=== PATIENT | male | born 1985 | race African-American/Black ===

== ENCOUNTER 2016-12-26 19:07 | Emergency (ER) | payer MEDICAID, OTHER ==
[~2016-12-26] VITALS: Ht 182.9 cm; Wt 108.0 kg
[~2016-12-26 19:07] MED LIST: ALBUTEROL INH
[2016-12-27 01:55] VITALS: BP 137/84
== END 2016-12-27 01:58 | disposition home or self-care (01) ==
LOC: ER 19:43
DX: S39.011A Strain of muscle, fascia and tendon of abdomen, initial encounter (principal); Q53.10 Unspecified undescended testicle, unilateral; J45.909 Unspecified asthma, uncomplicated; F17.210 Nicotine dependence, cigarettes, uncomplicated; Z88.6 Allergy status to analgesic agent; X50.0XXA Overexertion from strenuous movement or load, initial encounter; Y93.89 Activity, other specified; Y92.018 Other place in single-family (private) house as the place of occurrence of the external cause
CPT/HCPCS: 76857; 99284; Z7610

== ENCOUNTER 2017-07-25 09:50 | Emergency (ER) | payer MEDICAID ==
[~2017-07-25] VITALS: Ht 182.9 cm; Wt 108.6 kg
[2017-07-25 12:09] VITALS: BP 133/73
== END 2017-07-25 12:58 | disposition home or self-care (01) ==
LOC: ER 09:50
DX: R05 Cough (principal); Z88.6 Allergy status to analgesic agent
CPT/HCPCS: 71045; 87804; 99285

== ENCOUNTER 2020-08-08 00:46 | Emergency (ER) | payer MEDICAID, OTHER ==
[~2020-08-08] VITALS: Ht 182.9 cm; Wt 101.0 kg
[2020-08-08] MEDS ORDERED: LORAZEPAM 1MG TABLET PO ONE (01:15)
[2020-08-08 01:38] LABS: BASOPHILS % 1.5 % (0.0-2.0); EOSINOPHILS % 2.5 % (0.0-5.0); HEMATOCRIT. 44.8 % (42.0-52.0); HEMOGLOBIN. 14.8 g/dL (14.0-18.0); LYMPHOCYTES % 34.4 % (20.0-50.0); MEAN CORPUSCULAR HEMOGLOBIN 28.3 pg (28.0-32.0); MEAN CORPUSCULAR VOLUME 85.6 fL (80.0-94.0); MONOCYTES % 11.4 % (2.0-8.0); NEUTROPHILS % 50.2 % (40.0-76.0); PLATELET 235 x1000/uL (130-400); RED BLOOD CELL COUNT 5.24 mill/uL (4.7-6.1); RED CELL DISTRIBUTION WIDTH 14.7 % (11.6-14.6)
[2020-08-08 01:43] LABS: CHLORIDE 105 mEq/L (98-107)
[2020-08-08] MEDS ORDERED: LORA-249 MT (02:13)
[2020-08-08 03:28] VITALS: BP 143/81
== END 2020-08-08 03:29 | disposition home or self-care (01) ==
LOC: ER 00:46
DX: R07.89 Other chest pain (principal); J45.909 Unspecified asthma, uncomplicated; I10 Essential (primary) hypertension; Z88.6 Allergy status to analgesic agent; Z88.5 Allergy status to narcotic agent
CPT/HCPCS: 36415; 71045; 80053; 84484; 85025; 93005; 99285

== ENCOUNTER 2020-09-07 04:34 | Emergency (ER) | payer OTHER ==
[~2020-09-07] VITALS: Ht 193 cm; Wt 104.1 kg
[~2020-09-07 04:34] MED LIST changes: +LORA-249 MT
[2020-09-07] MEDS ORDERED: ASPIRIN 325MG EC TABLET PO ONE (05:30)
[2020-09-07] MEDS ORDERED: LORAZEPAM 0.5MG TABLET PO ONE (05:45)
[2020-09-07 06:07] LABS: CHLORIDE 105 mEq/L (98-107)
[2020-09-07 06:08] LABS: EOSINOPHILS % 1.3 % (0.0-5.0); HEMATOCRIT. 49.6 % (42.0-52.0); HEMOGLOBIN. 16.2 g/dL (14.0-18.0); LYMPHOCYTES % 28.2 % (20.0-50.0); MEAN CORPUSCULAR HEMOGLOBIN 28.1 pg (28.0-32.0); MEAN CORPUSCULAR VOLUME 86.3 fL (80.0-94.0); MEAN PLATELET VOLUME 8.7 fl (7.4-10.4); MONOCYTES % 12.8 % (2.0-8.0); NEUTROPHILS % 56.7 % (40.0-76.0); PLATELET 277 x1000/uL (130-400); RED BLOOD CELL COUNT 5.75 mill/uL (4.7-6.1); RED CELL DISTRIBUTION WIDTH 14.5 % (11.6-14.6)
[2020-09-07 08:52] LABS: *AMPHETAMINES SCREEN URINE NEGATIVE (NEGATIVE); *BARBITURATES SCREEN URINE NEGATIVE (NEGATIVE); *BENZODIAZEPINES SCREEN URINE NEGATIVE (NEGATIVE)
[2020-09-07 08:53] LABS: *COCAINE SCREEN URINE NEGATIVE (NEGATIVE); CANNABINOID URINE SCREEN NEGATIVE (NEGATIVE); METHADONE URINE SCREEN NEGATIVE (NEGATIVE); OPIATES URINE SCREEN NEGATIVE (NEGATIVE); PHENCYCLIDINE URINE SCREEN PRESUMTIVE POSITIVE (NEGATIVE)
[2020-09-07] MEDS ORDERED: LORA-249 PO ×2 (11:13→11:55)
[2020-09-07 11:16] VITALS: BP 154/94
== END 2020-09-07 11:27 | disposition home or self-care (01) ==
LOC: ER 04:34
DX: R07.89 Other chest pain (principal); F41.9 Anxiety disorder, unspecified; Z88.5 Allergy status to narcotic agent; Z79.899 Other long term (current) drug therapy; Z98.890 Other specified postprocedural states
CPT/HCPCS: 36415; 71045; 80053; 80305; 83880; 84484; 85025; 93005; 99285